=== PATIENT | female | born 1985 | race Caucasian/White ===

== ENCOUNTER 2018-01-24 19:15 | Emergency (ER) | payer OTHER ==
--- NOTE | 2018-01-24 19:40 | ERPHSYRPT ---
- History of Present Illness Time Seen by Provider: 01/24/18 19:26 Historian: patient Exam Limitations: no limitations Physician History: Pt has been c/o lower abdominal cramps, nausea for about one week, denies vomiting, diarrhea, fever, chills, but had urinary frequency and burning. She has her normal menstrual period currently. Timing/Duration: week(s) (1) Activities at Onset: none Quality: cramping Abdominal Pain Onset Location: suprapubic Pain Radiation: no radiation Severity of Pain-Max: moderate Severity of Pain-Current: moderate Modifying Factors: Improves With: nothing Associated Symptoms: nausea Previous symptoms: no prior history Allergies/Adverse Reactions: No Known Drug Allergies Allergy (Verified 01/24/18 19:39) Home Medications: Alprazolam 1 mg [Xanax 1 mg] 1 mg PO TID PRN 01/14/14 [History] Divalproex Sodium [Depakote] 500 mg PO TID 05/26/14 [History] Quetiapine Fumarate [Seroquel] 150 mg PO HS 01/24/18 [History] Hx Tetanus, Diphtheria Vaccination/Date Given: Yes Hx Influenza Vaccination/Date Given: No Hx Pneumococcal Vaccination/Date Given: No - Review of Systems Constitutional: No Symptoms Abdominal/Gastrointestinal: Abdominal Pain, Nausea, Constipation Genitourinary Symptoms: Dysuria, Frequency All Other Systems: Reviewed and Negative - Past Medical History Pertinent Past Medical History: No Neurological History: No Pertinent History ENT History: Other (previous ophthalmology for right eye issue) Cardiac History: No Pertinent History Respiratory History: No Pertinent History Endocrine Medical History: No Pertinent History Musculoskeletal History: Other (see history of present illness) GI Medical History: No Pertinent History History: No Pertinent History Psycho-Social History: Anxiety, Bipolar, Depression Female Reproductive Disorders: No Pertinent History Other Medical History: Scoliosis - Past Surgical History Past Surgical History: Yes Female Surgical History: Section Other Surgical History: ORAL SURGERY X4 - Social History Smoking Status: Current every day smoker Exposure to second hand smoke: Yes Drug Use: none Patient Lives Alone: No Significant Family History: no pertinent family hx - Female History Hx Now: No - Nursing Vital Signs Nursing Vital Signs: Initial Vital Signs Temperature 97.7 F 01/24/18 19:23 Pulse Rate 92 H 01/24/18 19:23 Blood Pressure 109/66 01/24/18 19:23 O2 Sat by Pulse Oximetry 97 01/24/18 19:23 Pain Scale Pain Intensity 6 - Physical Exam General Appearance: no apparent distress Eye Exam: eyes nml inspection Ears, Nose, Throat Exam: normal ENT inspection, moist mucous membranes Neck Exam: normal inspection, non-tender, supple Respiratory Exam: normal breath sounds, chest tenderness, lungs clear, airway intact Cardiovascular Exam: regular rate/rhythm, normal heart sounds, normal peripheral pulses, No murmur Gastrointestinal/Abdomen Exam: soft, normal bowel sounds, tenderness (suprapubic , RLQ, mild), No distention, No mass, No guarding, No ecchymosis, No pulsatile mass, No rebound, No hernia, No organomegaly Pelvic Exam: not done Extremity Exam: normal inspection Neurologic Exam: alert, oriented x 3, normal mood/affect Skin Exam: normal color, warm, dry Lymphatic Exam: No adenopathy SpO2 Interpretation: normal Oxygen Delivery: Room Air - Course Nursing assessment & vital signs reviewed: Yes - CT Exams Abdomen/Pelvis CT Interpretation: Tele-radiologist Report, Other (2.2 cm right ovarian cyst, constipation) Ordered Tests: Active Orders 24 hr Category Date Time Status IV Insertion STAT Care 01/24/18 19:35 Active NPO (ED) STAT Care 01/24/18 19:35 Active ABDOMEN AND PELVIS W CONTRAST [CT] Stat Exams 01/24/18 19:36 Taken CBC W DIFF Stat Lab 01/24/18 19:35 Completed CMP Stat Lab 01/24/18 19:35 Completed HCG,QUALITATIVE URINE Stat Lab 01/24/18 19:35 Completed LIPASE Stat Lab 01/24/18 19:35 Completed Occult Blood,Stool Other Stat Lab 01/24/18 21:01 Uncollected UA W/RFX UR CULTURE Stat Lab 01/24/18 19:35 Completed Medication Summary Discontinued Medications Generic Name Dose Route Start Last Admin Trade Name Freq PRN Reason Stop Dose Admin Sodium Chloride 1,000 mls @ 999 mls/hr 01/24/18 19:35 01/24/18 19:46 Sodium Chloride 0.9% 1000 Ml IV 01/24/18 20:35 999 mls/hr .Q1H1M STA Administration Sodium Chloride Confirm 01/24/18 19:45 Sodium Chloride 0.9% 1000 Ml Administered 01/24/18 19:46 Dose 1,000 mls @ ud .ROUTE .STK-MED ONE Ketorolac Tromethamine 30 mg 01/24/18 19:35 01/24/18 19:47 Toradol 30 Mg Injection IV 01/24/18 19:36 30 mg STAT ONE Administration Ketorolac Tromethamine Confirm 01/24/18 19:45 Toradol 30 Mg Injection Administered 01/24/18 19:46 Dose 30 mg .ROUTE .STK-MED ONE Ondansetron HCl 4 mg 01/24/18 19:35 01/24/18 19:47 Zofran 4 Mg/2 Ml Vial IV 01/24/18 19:36 4 mg STAT ONE Administration Ondansetron HCl Confirm 01/24/18 19:45 Zofran 4 Mg/2 Ml Vial Administered 01/24/18 19:46 Dose 4 mg .ROUTE .STK-MED ONE Lab/Rad Data: Laboratory Result Diagrams 01/24/18 19:35 01/24/18 19:35 Laboratory Results 01/24/18 01/24/18 01/24/18 Range/Units 19:35 19:35 19:35 WBC (4.0-10.5) K/mm3 RBC (4.1-5.4) M/mm3 Hgb (12.0-16.0) gm/dl Hct (35-47) % MCV (78-100) fl MCH (26-32) pg MCHC (32-36) g/dl RDW (11.5-14.0) % Plt Count (150-450) K/mm3 MPV (6-9.5) fl Gran % (36.0-66.0) % Eos # (Auto) (0-0.5) Absolute Lymphs (auto) (1.0-4.6) Absolute Monos (auto) (0.0-1.3) Lymphocytes % (24.0-44.0) % Monocytes % (0.0-12.0) % Eosinophils % (0.00-5.0) % Basophils % (0.0-0.4) % Absolute Granulocytes (1.4-6.9) Basophils # (0-0.4) Sodium 141 (137-145) mmol/L Potassium 3.8 (3.5-5.1) mmol/L Chloride 104 (98-107) mmol/L Carbon Dioxide 27 (22-30) mmol/L Anion Gap 14.5 (5-15) MEQ/L BUN 10 (7-17) mg/dL Creatinine 0.68 (0.52-1.04) mg/dL Estimated GFR > 60.0 ML/MIN Glucose 89 (74-106) mg/dL Calcium 9.4 (8.4-10.2) mg/dL Total Bilirubin 0.70 (0.2-1.3) mg/dL AST 26 (14-36) U/L ALT 48 H (0-35) U/L Alkaline Phosphatase 45 (38-126) U/L Serum Total Protein 7.6 (6.3-8.2) g/dL Lipase 144 (23-300) U/L Ur Collection Type CCMS Urine Color YELLOW (YELLOW) Urine Appearance CLEAR (CLEAR) Urine pH 6.0 (5-6) Ur Specific [place] 1.010 (1.005-1.025) Urine Protein NEGATIVE (Negative) Urine Ketones NEGATIVE (NEGATIVE) Urine Blood NEGATIVE (0-5) Manuel/ul Urine Nitrite NEGATIVE (NEGATIVE) Urine Bilirubin NEGATIVE (NEGATIVE) Urine Urobilinogen NORMAL (0-1) mg/dL Ur Leukocyte Esterase NEGATIVE (NEGATIVE) Urine Culture Reflexed NO (NO) Urine Glucose NEGATIVE (NEGATIVE) mg/dL Urine HCG, Qual NEGATIVE (Negative) Specimen Received 01-24-18194701/24/18 Range/Units 19:35 WBC 7.2 (4.0-10.5) K/mm3 RBC 4.50 (4.1-5.4) M/mm3 Hgb 14.3 (12.0-16.0) gm/dl Hct 40.5 (35-47) % MCV 90.0 (78-100) fl MCH 31.8 (26-32) pg MCHC 35.3 (32-36) g/dl RDW 12.3 (11.5-14.0) % Plt Count 213 (150-450) K/mm3 MPV 9.9 H (6-9.5) fl Gran % 54.4 (36.0-66.0) % Eos # (Auto) 0.12 (0-0.5) Absolute Lymphs (auto) 2.72 (1.0-4.6) Absolute Monos (auto) 0.42 (0.0-1.3) Lymphocytes % 38.0 (24.0-44.0) % Monocytes % 5.9 (0.0-12.0) % Eosinophils % 1.7 (0.00-5.0) % Basophils % 0.0 (0.0-0.4) % Absolute Granulocytes 3.90 (1.4-6.9) Basophils # 0 (0-0.4) Sodium (137-145) mmol/L Potassium (3.5-5.1) mmol/L Chloride (98-107) mmol/L Carbon Dioxide (22-30) mmol/L Anion Gap (5-15) MEQ/L BUN (7-17) mg/dL Creatinine (0.52-1.04) mg/dL Estimated GFR ML/MIN Glucose (74-106) mg/dL Calcium (8.4-10.2) mg/dL Total Bilirubin (0.2-1.3) mg/dL AST (14-36) U/L ALT (0-35) U/L Alkaline Phosphatase (38-126) U/L Serum Total Protein (6.3-8.2) g/dL Lipase (23-300) U/L Ur Collection Type Urine Color (YELLOW) Urine Appearance (CLEAR) Urine pH (5-6) Ur Specific [place] (1.005-1.025) Urine Protein (Negative) Urine Ketones (NEGATIVE) Urine Blood (0-5) Manuel/ul Urine Nitrite (NEGATIVE) Urine Bilirubin (NEGATIVE) Urine Urobilinogen (0-1) mg/dL Ur Leukocyte Esterase (NEGATIVE) Urine Culture Reflexed (NO) Urine Glucose (NEGATIVE) mg/dL Urine HCG, Qual (Negative) Specimen Received - Progress Progress: improved Progress Note: 01/24/18 21:03 Pt states, she feels better, no nausea, afebrile, no severe pain or distress, stable, I discussed our results with her, she is being discharged, advised to follow up with her doctor next week, return if severe pain, vomiting, or fever> 102 F, passing blood! Counseled pt/family regarding: lab results, diagnosis, need for follow-up, rad results - Departure Time of Disposition: 21:04 Departure Disposition: Home Clinical Impression: Constipation Qualifiers: Constipation type: other constipation type Qualified Code(s): K59.09 - Other constipation Ovarian cyst Qualifiers: Laterality: right Qualified Code(s): N83.201 - Unspecified ovarian cyst, right side Condition: Stable Critical Care Time: No Referrals: EMMIE POWELL [Primary Care Provider] - Instructions: Constipation, Adult (DC), Ovarian Cyst (DC) Additional Instructions: Rest x 2-3 days, drink plenty of fluids, follow up with your physician next week , return if severe pain, vomiting, fever> 102 F or bleeding! Prescriptions: Dicyclomine HCl 20 mg [Bentyl 20 mg] 20 mg PO TID PRN #15 tablet PRN Reason: Pain Lactulose [Enulose] 10 gm PO QAM 10 Days #10 ml
[2018-01-24 19:45] LABS: Basophil (Absolute #) 0 (0-0.4); Eosinophil % 1.7 % (0.00-5.0); Eosinophil (Absolute #) 0.12 (0-0.5); Granulocytes % 54.4 % (36.0-66.0); Hematocrit 40.5 % (35-47); Hemoglobin 14.3 gm/dl (12.0-16.0); Lymphocyte (Absolute #) 2.72 (1.0-4.6); Mean Corpuscular Hemoglobin 31.8 pg (26-32); Mean Corpuscular Hgb Concent. 35.3 g/dl (32-36); Mean Platelet Volume 9.9 fl (6-9.5); Monocyte (Absolute #) 0.42 (0.0-1.3); Monocytes % 5.9 % (0.0-12.0); Platelet Count 213 K/mm3 (150-450); Red Cell Distribution Width 12.3 % (11.5-14.0); White Blood Count 7.2 K/mm3 (4.0-10.5)
[2018-01-24] MEDS ORDERED: TORAdol 30 mg Injection ONE (19:45)
[2018-01-24] MEDS ORDERED: Sodium Chloride 0.9% 1000 ML 1,000 ML ONE (19:45)
[2018-01-24] MEDS ORDERED: Zofran 4 MG/2 ML VIAL ONE (19:45)
[2018-01-24] MEDS: Sodium Chloride 0.9% 1000 ML 1,000 ML IV STA (19:46)
[2018-01-24] MEDS: TORAdol 30 mg Injection IV ONE (19:47)
[2018-01-24] MEDS: Zofran 4 MG/2 ML VIAL IV ONE (19:47)
[2018-01-24 19:49] LABS: Appearance CLEAR (CLEAR); Bilirubin NEGATIVE (NEGATIVE); Blood NEGATIVE Ery/ul (0-5); Glucose NEGATIVE (NEGATIVE); Ketones NEGATIVE (NEGATIVE); Leukocyte Esterase NEGATIVE (NEGATIVE); Nitrite NEGATIVE (NEGATIVE); Protein,Urine Dip NEGATIVE (Negative); Urobilinogen NORMAL mg/dL (0-1)
[2018-01-24 20:02] LABS: ALKALINE PHOSPHATASE 45 U/L (38-126); ANION GAP 14.5 MEQ/L (5-15); BLOOD UREA NITROGEN 10 mg/dL (7-17); CHLORIDE 104 mmol/L (98-107); Calcium 9.4 mg/dL (8.4-10.2); Carbon Dioxide 27 mmol/L (22-30); Creatinine 1 0.68 mg/dL (0.52-1.04); Glucose 89 mg/dL (74-106); LIPASE 144 U/L (23-300); Potassium 3.8 mmol/L (3.5-5.1); SGOT/AST 26 U/L (14-36); SGPT/ALT 48 U/L (0-35); SODIUM 141 mmol/L (137-145); Total Protein 7.6 g/dL (6.3-8.2)
[2018-01-24] MEDS ORDERED: MILK OF MAGNESIA 30 ML ONE (21:01)
[2018-01-24] MEDS: MILK OF MAGNESIA 30 ML PO ONE (21:05)
[2018-01-24 21:25] LABS: ALBUMIN 4.8 g/dL (3.5-5.0)
[2018-01-24 22:01] VITALS: BP 111/71; PULSE 81; O2SAT 98
--- NOTE | 2018-01-25 08:54 | XRAY ---
Indication: Right lower quadrant pain. Constipation. Multiple contiguous axial images obtained through the abdomen and pelvis using 80 cc Isovue 370 contrast only. Comparison: December 03, 2010. Lung bases demonstrate minimal bibasilar fibrosis/scarring. No infiltrate or effusion. Heart is not enlarged. Stomach is distended with food/fluid. Noncontrasted stomach and bowel loops appear nonobstructed. Normal appendix. Mild/moderate diffuse scattered colonic fecal debris throughout. New 2.2 cm right ovary cyst and tiny cul-de-sac fluid presumed from rupture/leaking cyst. Incidental IUD and tampon in situ. Remaining liver, gallbladder, pancreas, spleen, adrenal glands, kidneys, ureters, bladder, and aorta appear unremarkable. No pathologic retroperitoneal lymphadenopathy. Osseous structures intact with moderate dextroscoliosis and bilateral L5 spondylolysis without spondylolisthesis. Impression: 1. New 2.2 cm right ovary cyst with tiny cul-de-sac fluid presumed physiologic. 2. New fecal stasis without obstruction. 3. Stable scoliosis and L5 spondylolysis without spondylolisthesis. CT DI 20.96
== END 2018-01-24 21:17 | disposition home or self-care (01) ==
LOC: ED 19:15
DX: K59.09 Other constipation (principal); N83.201 Unspecified ovarian cyst, right side; R10.30 Lower abdominal pain, unspecified; M41.9 Scoliosis, unspecified; F41.8 Other specified anxiety disorders; Z79.899 Other long term (current) drug therapy; Z72.0 Tobacco use
CPT/HCPCS: 36000; 36415; 74177; 80053; 81002; 82272; 83690; 84703; 85025; 96360; 96374; 96375; 99284; J1885; J2405; A9270-GY

== ENCOUNTER 2023-03-29 13:50 | Day surgery (SDC) | payer OTHER ==
[2023-03-29] MEDS ORDERED: BUPIVACAINE 0.5% VIAL IJ ONE (13:51)
[2023-03-29] MEDS ORDERED: Depo-Medrol 40 MG/ML IM ONE (13:51)
[2023-03-29 14:09] LABS: HCG URINE TEST NEGATIVE (NEGATIVE)
[2023-03-29] MEDS ORDERED: Versed 2 MG/2 ML Injection ONE (15:23)
[2023-03-29] MEDS ORDERED: DIPRIVAN 200 MG/20 ML IV ONE (15:23)
[2023-03-29] MEDS ORDERED: Lactated Ringers 1,000 ML IV ONE (16:17)
--- NOTE | 2023-03-29 16:44 | XRAY ---
Indication: Left SI joint injection. Intraoperative fluoroscopy provided for 11 seconds. 2 digital spot image submitted for interpretation demonstrates posterior needle tip projecting over the left SI joint. Correlate with intraoperative findings/report.
--- NOTE | 2023-03-29 16:47 | XRAY ---
11 seconds of fluoroscopy was used in surgery for a left sacroiliac joint injection.
== END 2023-03-29 15:47 | disposition home or self-care (01) ==
LOC: SDC-PAIN 13:50
PROVIDERS: ATTEND Psychiatry & Neurology Pain Medicine
DX: M46.1 Sacroiliitis, not elsewhere classified (principal)
CPT/HCPCS: 27096; 72170; 77002; 81025; J1030; J2250; J2704; G0260

== ENCOUNTER 2023-05-11 11:56 | Day surgery (SDC) | payer OTHER ==
[2023-05-11] MEDS ORDERED: BUPIVACAINE 0.5% VIAL IJ ONE (11:57)
[2023-05-11] MEDS ORDERED: Depo-Medrol 40 MG/ML IM ONE (11:57)
[2023-05-11 13:13] LABS: HCG URINE TEST NEGATIVE (NEGATIVE)
[2023-05-11] MEDS ORDERED: DIPRIVAN 200 MG/20 ML IV ONE (14:06)
[2023-05-11] MEDS ORDERED: Lactated Ringers 1,000 ML IV ONE (14:29)
--- NOTE | 2023-05-11 16:37 | XRAY ---
21 seconds of fluoroscopy was used in surgery for a bilateral intra-articular hip injection.
--- NOTE | 2023-05-12 10:56 | XRAY ---
21 seconds of fluoroscopy was used in surgery for a bilateral intra-articular hip injection.
== END 2023-05-11 14:32 | disposition home or self-care (01) ==
LOC: SDC-PAIN 11:56
PROVIDERS: ATTEND Psychiatry & Neurology Pain Medicine
DX: M16.0 Bilateral primary osteoarthritis of hip (principal)
CPT/HCPCS: 20610; 73521; 77002; 81025; J1030; J2704; Q9966

== ENCOUNTER 2024-07-10 19:05 | Emergency (ER) | payer OTHER ==
[2024-07-10 19:31] VITALS: TEMP 97.7
[2024-07-10 19:52] LABS: Absolute Neutrophil Ct (ANC) 6.77 x10^3/uL (1.56-6.13); BASOPHIL % 0.4 % (0.1-1.2); Basophil (Absolute #) 0.04 x10^3/uL (0.01-0.08); Eosinophil % 1.6 % (0.7-5.8); Eosinophil (Absolute #) 0.18 x10^3/uL (0.04-0.36); Hematocrit 38.1 % (34.1-44.9); Hemoglobin 13.3 g/dL (11.2-15.7); IMMATURE GRAN # 0.08 x10^3u/L (0.001-0.031); IMMATURE GRAN % 0.7 % (0.001-0.429); Lymphocyte (Absolute #) 3.36 x10^3/uL (1.18-3.74); Lymphocytes % 29.9 % (19.3-51.7); Mean Cell Volume 86.8 fL (79.4-94.8); Mean Corpuscular Hemoglobin 30.3 pg (25.6-32.2); Mean Corpuscular Hgb Concent. 34.9 g/dL (32.2-35.5); Mean Platelet Volume 9.8 fL (9.4-12.3); Monocyte (Absolute #) 0.79 x10^3/uL (0.24-0.86); Neutrophil % 60.4 % (34.0-71.1); Platelet Count 290 x10^3/uL (182-369); Red Blood Count 4.39 x10^6/uL (3.93-5.22); Red Cell Distribution Width 12.3 % (11.7-14.4); White Blood Count 11.2 x10^3/uL (3.98-10.04)
[2024-07-10 20:01] LABS: ALBUMIN 4.7 g/dL (3.5-5.0); ANION GAP 9.1 MEQ/L (5-15); BILIRUBIN,TOTAL 0.7 mg/dL (0.2-1.3); Calcium 9.7 mg/dL (8.4-10.2); Creatinine 1 0.61 mg/dL (0.52-1.04); Potassium 3.6 mmol/L (3.5-5.1); Total Protein 7.1 g/dL (6.3-8.2)
[2024-07-10 21:05] VITALS: BP 129/90; PULSE 95; RESP 20; O2SAT 100
--- NOTE | 2024-07-10 21:16 | ERPHSYRPT ---
- History of Present Illness Time Seen by Provider: 07/10/24 19:30 Source: patient Exam Limitations: no limitations Patient Subjective Stated Complaint: pt states that 15 minutes prior to arrival pt began to have sharp pain to her back Triage Nursing Assessment: pt came into the er via wheelchair; pt is anxious, restless, unable to sit still; axo x4; c/o upper back pain; pt states 8/10 pain to upper back; no abnormalities present to back; clear lung sounds in all lobes, anterior and posterior; clear apical heart tone; SOB, pt is hyperventilating; hypertensive; skin PDW Physician History: 38-year-old female presents to emergency department for evaluation of sudden onset back pain that started just prior to arrival.. Upon arrival to our ED RN reports patient was anxious restless and appeared to be in a panic state. However when I evaluated patient she appeared to be more calm. Patient was conversant. Patient's back pain was improving. No associated nausea vomiting or diaphoresis no trauma no fever. Significant other at bedside. They voiced no other complaints or concerns at this time. Portions of this note were created with voice recognition technology. There may be grammatical, spelling, punctuation or sound alike errors Timing/Duration: today Severity: moderate Modifying Factors: Improves With: nothing Associated Symptoms: other (Hyperventilation anxiety) Allergies/Adverse Reactions: No Known Drug Allergies Allergy (Verified 07/10/24 19:11) Home Medications: ALPRAZolam 1 MG [Xanax 1 mg] 1 mg PO TID PRN 01/14/14 [History] Quetiapine Fumarate [Seroquel] 300 mg PO HS 01/24/18 [History] Quetiapine Fumarate 300 mg PO HS 07/10/24 [History] Trazodone HCl 100 mg PO HS 07/10/24 [History] modafiniL [Modafinil] 200 mg PO DAILY 07/10/24 [History] Hx Tetanus, Diphtheria Vaccination/Date Given: Yes Hx Influenza Vaccination/Date Given: No Hx Pneumococcal Vaccination/Date Given: No Travel Risk - International Travel Have you traveled outside of the country in past 3 weeks: No - Emerging Infectious Disease Are you exhibiting symptoms associated with any current EIDs: Yes Symptoms: Shortness of Breath - Review of Systems Constitutional: No Symptoms, No Fever, No Chills Eyes: No Symptoms Ears, Nose, & Throat: No Symptoms Respiratory: No Symptoms, No Cough, No Dyspnea Cardiac: No Symptoms, No Chest Pain, No Edema, No Syncope Abdominal/Gastrointestinal: No Symptoms, No Abdominal Pain, No Nausea, No Vomiting, No Diarrhea Genitourinary Symptoms: No Symptoms, No Dysuria Musculoskeletal: No Symptoms, No Back Pain, No Neck Pain Skin: No Symptoms, No Rash Neurological: No Symptoms, No Dizziness, No Focal Weakness, No Sensory Changes Psychological: No Symptoms Endocrine: No Symptoms Hematologic/Lymphatic: No Symptoms Immunological/Allergic: No Symptoms All Other Systems: Reviewed and Negative - Past Medical History Pertinent Past Medical History: No Neurological History: No Pertinent History ENT History: Other Cardiac History: No Pertinent History Respiratory History: No Pertinent History Endocrine Medical History: No Pertinent History Musculoskeletal History: Other GI Medical History: No Pertinent History History: No Pertinent History Psycho-Social History: Anxiety, Bipolar, Depression Female Reproductive Disorders: No Pertinent History Other Medical History: Scoliosis - Past Surgical History Past Surgical History: Yes Musculoskeletal: Other Female Surgical History: Section, Tubal Ligation Other Surgical History: ORAL SURGERY X4, arm surgeries x3, x2 Significant Family History: no pertinent family hx - Female History Hx Last Menstrual Period: 07/09/24 Hx Now: No - Social History Smoking Status: Current every day smoker How long have you smoked: 12 years Exposure to second hand smoke: No Drug Use: none Patient Lives Alone: No - Social Determinants of Health Will the patient participate in the screening: Yes Do you worry about a steady place to live?: No Do you have any problems with any of the following?: No known problems In the past 12 months,have you had to go without utilities?: No Transportation Issues: No Has anyone in your support network made you feel unsafe?: No Have you or anyone in your house had to go without enough: No - Nursing Vital Signs Nursing Vital Signs: Initial Vital Signs Pulse Rate 92 H 07/10/24 19:11 Respiratory Rate 40 H 07/10/24 19:11 Blood Pressure 145/108 07/10/24 19:11 O2 Sat by Pulse Oximetry 96 07/10/24 19:11 Pain Scale Pain Intensity [Upper Back] 8 Pain Intensity 4 - Physical Exam General Appearance: no apparent distress, alert Eye Exam: PERRL/EOMI, eyes nml inspection Ears, Nose, Throat Exam: normal ENT inspection, TMs normal, pharynx normal, moist mucous membranes Neck Exam: normal inspection, non-tender, supple, full range of motion Respiratory Exam: normal breath sounds, lungs clear, airway intact, No respiratory distress Cardiovascular Exam: regular rate/rhythm, normal heart sounds, normal peripheral pulses Gastrointestinal/Abdomen Exam: soft, normal bowel sounds, No tenderness, No mass Back Exam: normal inspection, normal range of motion, No CVA tenderness, No vertebral tenderness Extremity Exam: normal inspection, normal range of motion, pelvis stable Neurologic Exam: alert, oriented x 3, cooperative, normal mood/affect, nml cerebellar function, nml station & gait, sensation nml, No motor deficits Skin Exam: normal color, warm, dry, No rash Lymphatic Exam: No adenopathy SpO2 Interpretation: normal SpO2: 100 O2 Delivery: Room Air - Course Nursing assessment & vital signs reviewed: Yes EKG Interpreted by Me: RATE (88), Sinus Rhythm, NORMAL AXIS, NORMAL INTERVALS, NORMAL QRS Ordered Tests: Active Orders 24 hr Category Date Time Status Poll Clerk STAT Care 07/10/24 19:47 Active IV Insertion STAT Care 07/10/24 19:47 Active Pulse Oximetry (ED) STAT Care 07/10/24 19:47 Active CHEST 1 VIEW (PORTABLE) Stat Exams 07/10/24 20:22 Taken CBC W DIFF Stat Lab 07/10/24 19:40 Completed CMP Stat Lab 07/10/24 19:40 Completed D-DIMER QUANTITATIVE Stat Lab 07/10/24 19:40 Completed TROPONIN Q4H Lab 07/10/24 19:40 Completed TROPONIN Q4H Lab 07/11/24 00:00 Ordered TROPONIN Q4H Lab 07/11/24 04:00 Ordered Lab/Rad Data: Laboratory Result Diagrams 07/10/24 19:40 07/10/24 19:40 Laboratory Results 07/10/24 07/10/24 07/10/24 Range/Units 19:40 19:40 19:40 WBC (3.98-10.04) x10^3/uL RBC (3.93-5.22) x10^6/uL Hgb (11.2-15.7) g/dL Hct (34.1-44.9) % MCV (79.4-94.8) fL MCH (25.6-32.2) pg MCHC (32.2-35.5) g/dL RDW (11.7-14.4) % Plt Count (182-369) x10^3/uL MPV (9.4-12.3) fL Gran % (34.0-71.1) % Immature Gran % (Auto) (0.001-0.429) % Nucleat RBC Rel Count (0.00-0.2) % Eos # (Auto) (0.04-0.36) x10^3/uL Immature Gran # (Auto) (0.001-0.031) x10^3u/L Absolute Lymphs (auto) (1.18-3.74) x10^3/uL Absolute Monos (auto) (0.24-0.86) x10^3/uL Absolute Nucleated RBC (0.00-0.012) x10^3u/L Lymphocytes % (19.3-51.7) % Monocytes % (4.7-12.5) % Eosinophils % (0.7-5.8) % Basophils % (0.1-1.2) % Absolute Granulocytes (1.56-6.13) x10^3/uL Basophils # (0.01-0.08) x10^3/uL D-Dimer 0.26 (0.0-0.50) mg/L Sodium 135 (135-145) mmol/L Potassium 3.6 (3.5-5.1) mmol/L Chloride 101 (98-107) mmol/L Carbon Dioxide 29 (22-30) mmol/L Anion Gap 9.1 (5-15) MEQ/L BUN 7 (7-17) mg/dL Creatinine 0.61 (0.52-1.04) mg/dL Estimated GFR 118.0 ML/MIN Glucose 85 (74-106) mg/dL Calcium 9.7 (8.4-10.2) mg/dL Total Bilirubin 0.70 (0.2-1.3) mg/dL AST 27 (14-36) U/L ALT 36 H (0-35) U/L Alkaline Phosphatase 69 (38-126) U/L Troponin I < 0.012 (0.000-0.033) ng/mL Serum Total Protein 7.1 (6.3-8.2) g/dL Albumin 4.7 (3.5-5.0) g/dL 07/10/24 Range/Units 19:40 WBC 11.2 H (3.98-10.04) x10^3/uL RBC 4.39 (3.93-5.22) x10^6/uL Hgb 13.3 (11.2-15.7) g/dL Hct 38.1 (34.1-44.9) % MCV 86.8 (79.4-94.8) fL MCH 30.3 (25.6-32.2) pg MCHC 34.9 (32.2-35.5) g/dL RDW 12.3 (11.7-14.4) % Plt Count 290 (182-369) x10^3/uL MPV 9.8 (9.4-12.3) fL Gran % 60.4 (34.0-71.1) % Immature Gran % (Auto) 0.7 H (0.001-0.429) % Nucleat RBC Rel Count 0.0 (0.00-0.2) % Eos # (Auto) 0.18 (0.04-0.36) x10^3/uL Immature Gran # (Auto) 0.08 H (0.001-0.031) x10^3u/L Absolute Lymphs (auto) 3.36 (1.18-3.74) x10^3/uL Absolute Monos (auto) 0.79 (0.24-0.86) x10^3/uL Absolute Nucleated RBC 0.00 (0.00-0.012) x10^3u/L Lymphocytes % 29.9 (19.3-51.7) % Monocytes % 7.0 (4.7-12.5) % Eosinophils % 1.6 (0.7-5.8) % Basophils % 0.4 (0.1-1.2) % Absolute Granulocytes 6.77 H (1.56-6.13) x10^3/uL Basophils # 0.04 (0.01-0.08) x10^3/uL D-Dimer (0.0-0.50) mg/L Sodium (135-145) mmol/L Potassium (3.5-5.1) mmol/L Chloride (98-107) mmol/L Carbon Dioxide (22-30) mmol/L Anion Gap (5-15) MEQ/L BUN (7-17) mg/dL Creatinine (0.52-1.04) mg/dL Estimated GFR ML/MIN Glucose (74-106) mg/dL Calcium (8.4-10.2) mg/dL Total Bilirubin (0.2-1.3) mg/dL AST (14-36) U/L ALT (0-35) U/L Alkaline Phosphatase (38-126) U/L Troponin I (0.000-0.033) ng/mL Serum Total Protein (6.3-8.2) g/dL Albumin (3.5-5.0) g/dL - Progress Progress: improved Progress Note: 38-year-old female presents to our ED what appeared to be a panic attack. Laboratory workup ordered including troponin and D-dimer. D-dimer -0.29. Troponin negative. EKG sinus rhythm rate of 88. Chest x-ray revealed no acute findings however formal read pending. Patient reassessed. Symptomology has resolved. Vital stable. Patient declined pain medication as her back pain was no longer an active issue. I consulted with patient and her significant other regarding her presentation our workup and our impression. Patient advised to follow-up with her primary care doctor within 48 hours for reevaluation. Patient voiced no other complaints or concerns at this time. Patient declined pain medication. Portions of this note were created with voice recognition technology. There may be grammatical, spelling, punctuation or sound alike errors Complexity of problem addressed is moderate acute complicated. No critical care time. Complex of data reviewed analyzes moderate. Test ordered chest reviewed results analyzed and correlated clinically with history and physical exam. Risk of complication and or risk of morbidity/mortality of patient management is low. Vital stable. Time spent to discharge patient approximately 15 minutes. Plan of care established for shared decision making. No social determinants of health present to impede follow-up. Portions of this note were created with voice recognition technology. There may be grammatical, spelling, punctuation or sound alike errors 07/10/24 21:27 Counseled pt/family regarding: lab results, diagnosis, need for follow-up, rad results - Departure Departure Disposition: Home Clinical Impression: Back pain, Panic attack Condition: Stable Critical Care Time: No Referrals: JAVIER MORA MD [Primary Care Provider] - Follow up/PCP as directed Instructions: Panic Attack ED, Upper Back Pain ED Additional Instructions: Discharge/Care Plan OSWALDO HANSON was seen on 07/10/24 in the Emergency Room. The patient was counseled regarding Diagnosis,Lab results, Imaging studies, need for follow up and when to return to the Emergency Room. Prescriptions given: Discharge Note I have spoken with the patient and/or caregivers. I have explained the patient's condition, diagnosis and treatment plan based on the information available to me at this time. I have answered the patient's and/or caregiver's questions and addressed any concerns. The patient and/or caregivers have as good understanding of the patient's diagnosis, condition and treatment plan as can be expected at this point. The vital signs have been stable. The patient's condition is stable and appropriate for discharge from the emergency department. The patient will pursue further outpatient evaluation with the primary care physician or other designated or consulting physician as outlined in the discharge instructions. The patient and/or caregivers are agreeable to this plan of care and follow-up instructions have been explained in detail. The patient and/or caregivers have received these instruction. The patient/and or caregivers are aware that any significant change in condition or worsening of symptoms should prompt an immediate return to this or the closest emergency department or call 911.
--- NOTE | 2024-07-11 08:33 | XRAY ---
Indication: Pain. Comparison: May 04, 2022 Portable chest again demonstrates normal heart and lungs with incidental left lung calcified granuloma. Bony thorax intact again with minimal scoliosis. No new/acute findings.
== END 2024-07-10 21:23 | disposition home or self-care (01) ==
LOC: ED 19:05
DX: M54.9 Dorsalgia, unspecified (principal); F41.0 Panic disorder [episodic paroxysmal anxiety]
CPT/HCPCS: 36415; 71045; 80053; 84484; 85025; 85379; 93041; 94760; 99284; 99285